=== PATIENT | female | born 1955 | race Caucasian/White ===

== ENCOUNTER 2021-11-20 09:57 | Emergency (ER) | payer MEDICARE, OTHER ==
[~2021-11-20 09:57] MED LIST: BUSPIRONE HCL15 MG PO; CARTIA XT180 MG PO; ELIQUIS5 MG PO; PERCOCET 5-3251 EACH PO; PRAVACHOL40 MG PO; PROZAC20 MG PO; SYNTHROID125 MC1 PO; ZESTORETIC 20-1 EACH PO
[2021-11-20] MEDS ORDERED: NORCO 5-325 TA1 EACH PO (13:25)
[2021-11-20] MEDS ORDERED: FLEXERIL5 MG PO (13:25)
== END 2021-11-20 13:35 | disposition home or self-care (01) ==
LOC: FER 09:57
DX: S13.4XXA Sprain of ligaments of cervical spine, initial encounter (principal); S80.02XA Contusion of left knee, initial encounter; I10 Essential (primary) hypertension; I48.91 Unspecified atrial fibrillation; Z79.890 Hormone replacement therapy; Z88.5 Allergy status to narcotic agent; W19.XXXA Unspecified fall, initial encounter; Y92.009 Unspecified place in unspecified non-institutional (private) residence as the place of occurrence of the external cause
CPT/HCPCS: 70450; 72125; 73564; J1170